=== PATIENT | female | born 1975 | race Caucasian/White ===

== ENCOUNTER → 2019-11-08 06:46 | Outpatient (CLI) | payer OTHER, SELFPAY ==
--- NOTE | 2019-11-08 08:18 | PM.TREADMILL ---
Cardiac Stress Test Report Referral & Results Date Patient Seen: 11/08/19 Time Patient Seen: 08:00 Requesting provider: Valdez Brooks Indication: Chest pain Rest ECG: Normal sinus rhythm Procedure Note: After both written and verbal informed consent the patient had an IV started by the diagnostic imaging RN, and then was hooked up to the treadmill monitoring system. The Lexiscan material, and then the Cardiolite tracer, were administered sequentially. An additional 3 min was spent monitoring the patient while supine on the gurney. The patient had a normal response to all infused materials. Impression: Successful [place] protocol. Will await perfusion imaging. Please note: Actual ECG tracings can be found in the PACS system.
--- NOTE | 2019-11-11 17:48 | DI.NM.S_ITS ---
DATE OF SERVICE: 11/08/2019 PROCEDURE: Pharmacological perfusion study. INDICATIONS: Chest pain with strong family history of premature coronary artery disease. RADIOPHARMACEUTICAL: 22.7 mCi technetium-99m Myoview IV was injected at stress and 26.1 mCi technetium-99m Myoview IV was injected at rest. CARDIAC STRESS: Patient underwent IV Lexiscan perfusion study under the supervision of an attending staff using standard Lexiscan as per protocol. She couldn't walk on treadmill because of chronic back problems, spinal surgery. Patient remained hemodynamically stable. No significant symptoms were reported. Baseline EKG revealed sinus rhythm. Stress EKG did not reveal any obvious inducible ischemic changes. There were no significant arrhythmias seen. RAW DATA: Significant breast shadow seen. GATED STUDY: Stress LV ejection fraction 82% without any obvious wall motion abnormalities. No transient ischemic dilatation. TID ratio is 0.93, which is within normal limits. Resting LV end-diastolic volume is 81 mL. Lung/heart ratio is 0.37, which is within normal limits. MYOCARDIAL PERFUSION SCAN: Stress supine, resting supine, and stress prone images were compared to each other. It appears to be that patient has predominantly fixed, small-sized mildly decreased perfusion of distal anterior wall and distal anteroseptum without any significant ischemic burden. CONCLUSION: There is a predominantly fixed small-sized defect involving the distal anterior wall and distal anteroseptum. During raw data, significant breast shadow was seen. On gated study, stress left ventricular (LV) ejection fraction, 82%. There is no wall motion abnormalities. On surface, EKG, no evidence of anterior septal or anterior wall myocardial infarction. Hence, most likely, this predominantly fixed perfusion defect due to persistent breast tissue attenuation artifact. Normal wall motion goes against the diagnosis of previous transmural myocardial infarction. However, one cannot rule out possibility of small nontransmural myocardial infarction involving distal anterior wall and distal anterior septum; however, that's a remote possibility. In absence of ischemia, preserved LV function, overall this is not a high-risk myocardial perfusion scan. Correlate clinically. Cate Davis - TILE AND MOTTLE SUPERVISOR/tanner/ab doc#: [id number]/job#: [id number] dd: 11/11/2019 17:05:00 dt: 11/11/2019 17:38:00 DICTATING MD/COPIES TO: Wang Stoner MD COPIES MNE: DARELL
== END ==
PROVIDERS: PCP Family Medicine; Visit Provider Family Medicine
DX: R07.9 Chest pain, unspecified (principal); Z82.49 Family history of ischemic heart disease and other diseases of the circulatory system
CPT/HCPCS: 78452; 93016; 93017; 93018; A9502; J2785

== ENCOUNTER → 2020-10-29 11:53 | Outpatient (CLI) | payer OTHER, SELFPAY ==
--- NOTE | 2020-10-29 | DI.MRI.S_ITS ---
PROCEDURE: MR CERVICAL SPINE WO CON INDICATIONS: Cervical root disorders, not elsewhere classified TECHNIQUE: Noncontrast sagittal T1 spin echo and T2 fast spin echo, sagittal STIR, foraminal oblique sagittal T2 fast spin echo, and axial gradient echo or T2 fast spin echo through the cervical spine. COMPARISON: [facility], , C-SPINE WITHOUT CONTRAST, 01/08/2016, 15:57. FINDINGS: Image quality: Excellent. Alignment and Curvature: There is normal bony alignment. Thoracic Scherer rods produce significant posterior metallic artifact at the level of T1. Bone Marrow: Marrow demonstrates normal overall signal. Spinal Cord: Visualized spinal cord has normal size and signal. No cerebellar tonsillar herniation. Paraspinous Soft Tissues: No paravertebral masses. Prevertebral soft tissues are normal in thickness. C2-C3: No canal stenosis or foraminal stenosis. C3-C4: No canal stenosis. Right facet and uncovertebral joint hypertrophy with increase in right foraminal stenosis, now [id number], with mild flattening deformity of the exiting right C4 nerve root. Progression of left facet arthropathy with significant progression of left foraminal narrowing, which is moderately severe, with impingement on the exiting left C4 nerve root. C4-C5: No canal stenosis. Mild right facet hypertrophy and right uncovertebral joint hypertrophy results in moderate right foraminal narrowing with flattening deformity on the exiting right C5 nerve root. This is progressed. Mild left foraminal narrowing. C5-C6: Mild canal stenosis. Bilateral uncovertebral joint hypertrophy. Moderate right foraminal narrowing and moderately severe left foraminal narrowing with impingement on the left C6 nerve root in the left foramen. C6-C7: No canal stenosis. Bilateral uncovertebral joint hypertrophy. Bilateral mild to moderate foraminal narrowing. C7-T1: No canal stenosis or foraminal stenosis. IMPRESSION: 1. Diffuse cervical spondylitic change. 2. There is mild canal stenosis at C5-C6. There is no central canal stenosis at the other levels. 3. Significant multilevel foraminal narrowing as described above. Dictated by: Yousif Ramírez M.D. on 10/29/2020 at 15:14 Approved by: Yousif Ramírez M.D. on 10/29/2020 at 15:33
== END ==
PROVIDERS: PCP Family Medicine; Referring Provider Family Medicine; Visit Provider Family Medicine
DX: M47.812 Spondylosis without myelopathy or radiculopathy, cervical region (principal); M48.02 Spinal stenosis, cervical region
CPT/HCPCS: 72141

== ENCOUNTER → 2021-02-18 16:02 | Outpatient (CLI) | payer OTHER, SELFPAY ==
[2021-02-18] MEDS: COVID-19 VACC #1, MRNA(MOD) 100 MCG/0.5 ML VIAL IM (16:11)
== END ==
PROVIDERS: PCP Family Medicine; Visit Provider Internal Medicine
DX: Z23 Encounter for immunization (principal)
CPT/HCPCS: 0011A; 91301

== ENCOUNTER → 2021-03-18 15:53 | Outpatient (CLI) | payer OTHER, SELFPAY ==
[2021-03-18] MEDS: COVID-19 VACC #2, MRNA(MOD) 100 MCG/0.5 ML VIAL IM (16:01)
== END ==
PROVIDERS: PCP Family Medicine; Visit Provider Internal Medicine
DX: Z23 Encounter for immunization (principal)
CPT/HCPCS: 0012A; 91301

== ENCOUNTER → 2024-01-01 16:13 | Outpatient (CLI) | payer OTHER, SELFPAY ==
--- NOTE | 2024-01-01 | DI.MRI.S_ITS ---
PROCEDURE: MR CERVICAL SPINE WO CON INDICATIONS: CERVICAL ROOT DISORDERS TECHNIQUE: Noncontrast sagittal T1 spin echo and T2 fast spin echo, sagittal STIR, foraminal oblique sagittal T2 fast spin echo, and axial gradient echo or T2 fast spin echo through the cervical spine. COMPARISON: [facility], MR, MR CERVICAL SPINE WO CON, 10/29/2020, 12:22. [facility], MR, C-SPINE WITHOUT CONTRAST, 01/08/2016, 15:57. [facility], CR, XR CERVICAL SPINE 2 OR 3 VIEWS, 05/26/2021, 10:35. [facility], MR, C-SPINE WITHOUT CONTRAST, 06/25/2013, 17:12. FINDINGS: Image quality: There is artifact associated with the metallic hardware. This examination is limited by involuntary motion artifact. Alignment and Curvature: There is normal bony alignment. Bone Marrow: Marrow demonstrates normal overall signal. Spinal Cord: Visualized spinal cord has normal size and signal. No cerebellar tonsillar herniation. Paraspinous Soft Tissues: No paravertebral masses. Prevertebral soft tissues are normal in thickness. C2-C3: The disc height is well-preserved. Loss of disc signal is seen at this level. A mild degree of generalized disc osteophyte complex is seen. Mild to moderate facet hypertrophy can be seen. [id number] bilateral neural foraminal narrowing can be seen. No significant central canal narrowing is seen. These imaging findings have progressed compared to the prior study. C3-C4: Mild loss of disc height is seen. Loss of disc signal is seen. Mild to moderate disc osteophyte complex is seen. There is mild right-sided and at least moderate left-sided facet hypertrophy. There is moderate to severe right-sided and at least moderate left-sided neural foraminal narrowing. Mild central canal narrowing is seen. These imaging findings have progressed compared to the prior study. C4-C5: The disc height is well-preserved. Loss of disc signal is seen at this level. Moderate disc osteophyte complex is seen, which is eccentric to the left, with a left foraminal disc osteophyte protrusion. There is at least moderate left-sided and [id number] right-sided neural foraminal narrowing. There is moderate to severe right-sided and no left-sided neural foraminal narrowing. Mild central canal narrowing is seen. These degenerative changes are worse than in 2020. C5-C6: At least moderate loss of disc height and disc signal can be seen. Moderate generalized disc osteophyte complex is seen. Uncovertebral joint hypertrophy is seen at this level. Mild to moderate facet hypertrophy is seen. There is moderate right-sided and at least moderate left-sided neural foraminal narrowing. Mild central canal narrowing is seen. These imaging findings have progressed compared to the prior study. C6-C7: Mild loss of disc height is seen. Loss of disc signal is seen. Mild to moderate disc osteophyte complex is seen. There is mild right-sided and moderate left-sided facet hypertrophy. There is moderate to severe left-sided and at least moderate right-sided neural foraminal narrowing. Minimal central canal narrowing is seen. These degenerative changes are worse than on the prior. C7-T1: The disc height and disk signal are well-preserved. A mild degree of generalized disc osteophyte complex is seen. Mild facet joint hypertrophy is seen. There is moderate left-sided and no right-sided neural foraminal narrowing. No central canal narrowing is seen. These imaging findings have progressed compared to the prior study. Superior thoracic spine postoperative hardware can be seen posteriorly, with associated susceptibility artifact. IMPRESSION: Multiple levels of cervical spine degenerative change can be seen, which have progressed compared to 2020. Dictated by: Lit Hardy M.D. on 01/01/2024 at 16:45 Approved by: Lit Hardy M.D. on 01/01/2024 at 16:51
== END ==
PROVIDERS: PCP Family Medicine; Referring Provider Family Medicine; Visit Provider Family Medicine
DX: M47.812 Spondylosis without myelopathy or radiculopathy, cervical region (principal); G54.2 Cervical root disorders, not elsewhere classified
CPT/HCPCS: 72141